=== PATIENT | female | born 1960 | race Caucasian/White ===

== ENCOUNTER 2017-08-12 09:13 | Emergency (ER) | payer MEDICAID ==
[~2017-08-12] VITALS: Ht 160 cm; Wt 63.6 kg
[~2017-08-12 09:13] MED LIST: LEVO150T8 PO
[2017-08-12 09:41] LABS: CLARITY,URINE CLEAR (Clear); COLOR,URINE YELLOW (Yellow); GLUCOSE, URINE NEGATIVE (Neg); KETONES,URINE NEGATIVE (Neg); LEUKOCYTE ESTERASE ,URINE NEGATIVE (Neg); NITRITES, URINE NEGATIVE (Neg); OCCULT BLOOD,URINE MODERATE (Neg); PROTEIN,URINE NEGATIVE (Neg); UROBILINOGEN,URINE 0.2 E.U/dL (0.2-1.0)
[2017-08-12 09:55] LABS: BASOPHILS # (AUTO) 0.1 X10'3 (0-0.2); BASOPHILS % (AUTO) 0.7 % (0-1); EOSINOPHILS # (AUTO) 0.2 X10'3 (0-0.9); EOSINOPHILS % (AUTO) 2.2 % (0-6); HEMATOCRIT 44.2 % (35.0-45.0); HEMOGLOBIN 15.2 g/dl (12.0-16.0); LYMPHOCYTES # (AUTO) 1.1 X10'3 (1.1-4.8); MEAN CORPUSCULAR HEMOGLOBIN 32.5 PG (27.0-31.0); MEAN CORPUSCULAR HGB CONC 34.4 % (33.0-36.5); MEAN CORPUSCULAR VOLUME 94.5 FL (78-98); MEAN PLATELET VOLUME 7.1 FL (7.4-10.4); MONOCYTES # (AUTO) 0.5 X10'3 (0-0.9); NEUTROPHILS # (AUTO) 5.8 X10'3 (1.8-7.7); NEUTROPHILS % (AUTO) 76.1 % (42-75); PLATELET COUNT 225 X10'3 (140-440); RED BLOOD COUNT 4.68 X10'6 (4.20-5.60); RED CELL DISTRIBUTION WIDTH 14.2 % (11.5-14.5); WHITE BLOOD COUNT 7.6 X10'3 (4.5-11.0)
[2017-08-12 09:57] LABS: UA COLLECTION TYPE CLN CATCH MIDSTREAM
[2017-08-12 09:58] LABS: BACTERIA,URINE NONE SEEN /HPF (Neg); MUCUS STRANDS NONE SEEN /LPF (Neg); SQUAMOUS EPITHELIAL CELL,UR NONE SEEN /LPF (FEW); WBC,URINE 0-4 /HPF (0-4)
[2017-08-12 10:16] LABS: ALANINE AMINOTRANSFERASE 20 U/L (12-78); ALBUMIN 3.6 G/DL (3.4-5.0); ALBUMIN/GLOBULIN RATIO 0.8 (1.1-1.5); ALKALINE PHOSPHATASE 118 IU/L (46-116); ANION GAP 8 (8-16); ASPARTATE AMINO TRANSFERASE 22 U/L (10-37); BILIRUBIN,TOTAL 0.4 MG/DL (0.1-1.0); BLOOD UREA NITROGEN 17 MG/DL (7-18); BUN/CREATININE RATIO 21.8 (6.6-38.0); CALCIUM 8.7 MG/DL (8.5-10.1); CHLORIDE 102 MMOL/L (99-107); CREATININE 0.78 MG/DL (0.40-0.90); GLUCOSE 93 MG/DL (70-104); POTASSIUM 3.9 MMOL/L (3.5-5.1); SODIUM 141 MMOL/L (135-145); TOTAL CARBON DIOXIDE 30.7 MMOL/L (24-32); TOTAL PROTEIN 8.4 G/DL (6.4-8.2); eGFR 76 ML/MIN
[2017-08-12 10:18] VITALS: BP 138/98
[2017-08-12 13:02] LABS: OCCULT BLOOD STOOL POSITIVE (Neg)
== END 2017-08-12 10:57 | disposition home or self-care (01) ==
LOC: ER 09:13
DX: K62.5 Hemorrhage of anus and rectum (principal); I25.2 Old myocardial infarction; F17.210 Nicotine dependence, cigarettes, uncomplicated; Z98.890 Other specified postprocedural states; Z88.0 Allergy status to penicillin; Z88.2 Allergy status to sulfonamides; Z79.899 Other long term (current) drug therapy
CPT/HCPCS: 36415; 74176; 80053; 81001; 82272; 85025; 99285

== ENCOUNTER 2018-08-22 16:01 | Emergency (ER) | payer MEDICARE, MEDICAID ==
[~2018-08-22] VITALS: Ht 160 cm; Wt 63.6 kg
[~2018-08-22 16:01] MED LIST changes: +METH57CR8 TOP
[2018-08-22 16:58] VITALS: BP 118/76
[2018-08-22] MEDS ORDERED: HYDR-4383 PO (17:53)
[2018-08-22] MEDS ORDERED: METH-360 PO (17:54)
[2018-08-22] MEDS ORDERED: ketorolac tromethamine 15mg/ml inj. IM ONE (17:55)
== END 2018-08-22 18:18 | disposition home or self-care (01) ==
LOC: ER 16:01
DX: M94.0 Chondrocostal junction syndrome [Tietze] (principal); I25.2 Old myocardial infarction; C50.919 Malignant neoplasm of unspecified site of unspecified female breast; Z88.0 Allergy status to penicillin; Z88.2 Allergy status to sulfonamides; Z79.899 Other long term (current) drug therapy; Z98.890 Other specified postprocedural states; W18.39XA Other fall on same level, initial encounter; Y93.89 Activity, other specified; Y92.89 Other specified places as the place of occurrence of the external cause; Y99.8 Other external cause status
CPT/HCPCS: 71046; 96372; 99284; J1885

== ENCOUNTER 2020-01-15 07:54 | Day surgery (SDC) | payer MEDICARE, MEDICAID ==
[~2020-01-15] VITALS: Ht 165.1 cm; Wt 62.6 kg
[~2020-01-15 07:54] MED LIST changes: +HYDR-4383 PO; +METH-360 PO
[2020-01-15] MEDS ORDERED: normal saline 1000ml 1,000 ML IV SCH (08:15)
[2020-01-15] MEDS ORDERED: KETO10DR3 EACHEYE (08:25)
[2020-01-15] MEDS ORDERED: DULO20CA18 PO (08:25)
[2020-01-15] MEDS ORDERED: ASCO250T68 (08:25)
[2020-01-15] MEDS ORDERED: LEVO112T5 PO (08:25)
[2020-01-15] MEDS ORDERED: GABA300T25 PO (08:25)
[2020-01-15] MEDS ORDERED: ERGO400C PO (08:25)
[2020-01-15 08:28] VITALS: BP 150/98
[2020-01-15 09:14] LABS: BASOPHILS % (AUTO) 0.7 % (0-1); EOSINOPHILS # (AUTO) 0.1 X10'3 (0-0.9); EOSINOPHILS % (AUTO) 1.4 % (0-6); HEMATOCRIT 44.6 % (35.0-45.0); LYMPHOCYTES % (AUTO) 14.7 % (21-51); MEAN CORPUSCULAR HEMOGLOBIN 32.3 PG (27.0-31.0); MEAN CORPUSCULAR HGB CONC 33.5 g/dL (33.0-36.5); MEAN CORPUSCULAR VOLUME 96.2 FL (78-98); MEAN PLATELET VOLUME 7.4 FL (7.4-10.4); MONOCYTES # (AUTO) 0.5 X10'3 (0-0.9); NEUTROPHILS # (AUTO) 5.2 X10'3 (1.8-7.7); NEUTROPHILS % (AUTO) 76.2 % (42-75); PLATELET COUNT 195 X10'3 (140-440); RED BLOOD COUNT 4.64 X10'6 (4.20-5.60); RED CELL DISTRIBUTION WIDTH 13.7 % (11.5-14.5); WHITE BLOOD COUNT 6.9 X10'3 (4.5-11.0)
[2020-01-15 09:21] LABS: ALBUMIN 3.4 G/DL (3.4-5.0); ANION GAP 9 (8-16); BLOOD UREA NITROGEN 18 MG/DL (7-18); CALCIUM 8.6 MG/DL (8.5-10.1); CHLORIDE 105 MMOL/L (99-107); CREATININE 0.82 MG/DL (0.40-0.90); GLUCOSE 95 MG/DL (70-104); POTASSIUM 3.6 MMOL/L (3.5-5.1); SODIUM 140 MMOL/L (135-145); TOTAL CARBON DIOXIDE 26.4 MMOL/L (24-32); eGFR 71 ML/MIN
--- NOTE | 2020-01-15 11:00 | NUR ---
Procedure cancelled per MD Aniket and patient agreed.
== END 2020-01-15 11:00 | disposition home or self-care (01) ==
LOC: SSTAY O 07:54
PROVIDERS: ATTEND Radiology Diagnostic Radiology
DX: R91.1 Solitary pulmonary nodule (principal); Z53.8 Procedure and treatment not carried out for other reasons; Z20.828 Contact with and (suspected) exposure to other viral communicable diseases; Z88.2 Allergy status to sulfonamides; Z88.0 Allergy status to penicillin
CPT/HCPCS: 36415; 80048; 85025; 87635

== ENCOUNTER 2020-05-18 11:21 | Day surgery (SDC) | payer MEDICARE, MEDICAID ==
[2020-05-15 14:00] LABS: PRE OP PROTIME 10.5 SECONDS (9.0-12.0)
[2020-05-15 14:01] LABS: ALBUMIN 3.5 G/DL (3.4-5.0); ALBUMIN/GLOBULIN RATIO 0.8 (1.1-1.5); ALKALINE PHOSPHATASE 100 IU/L (46-116); BLOOD UREA NITROGEN 17 MG/DL (7-18); BUN/CREATININE RATIO 18.5 (6.6-38.0); CALCIUM 9.5 MG/DL (8.5-10.1); CHLORIDE 106 MMOL/L (99-107); CREATININE 0.92 MG/DL (0.40-0.90); PRE OP ALT 19 U/L (30-65); PRE OP ANION GAP 6 (8-16); PRE OP AST 13 U/L (10-37); PRE OP BILIRUB, TOTAL 0.3 MG/DL (0.0-1.0); PRE OP GLUCOSE 79 MG/DL (70-104); PRE OP POTASSIUM 4.3 MMOL/L (3.4-5.1); PRE OP SODIUM 142 MMOL/L (135-145); TOTAL CARBON DIOXIDE 30.1 MMOL/L (24-32); TOTAL PROTEIN 8.1 G/DL (6.4-8.2); eGFR 62 ML/MIN
[2020-05-15 14:02] LABS: BASOPHILS % (AUTO) 0.6 % (0-1); EOSINOPHILS # (AUTO) 0.2 X10'3 (0-0.9); EOSINOPHILS % (AUTO) 1.9 % (0-6); LYMPHOCYTES # (AUTO) 1.1 X10'3 (1.1-4.8); LYMPHOCYTES % (AUTO) 14.5 % (21-51); MEAN CORPUSCULAR HEMOGLOBIN 32.8 PG (27.0-31.0); MEAN CORPUSCULAR HGB CONC 34.2 g/dL (33.0-36.5); MEAN CORPUSCULAR VOLUME 95.9 FL (78-98); MEAN PLATELET VOLUME 7.2 FL (7.4-10.4); MONOCYTES # (AUTO) 0.7 X10'3 (0-0.9); MONOCYTES % (AUTO) 8.6 % (2-12); NEUTROPHILS # (AUTO) 5.9 X10'3 (1.8-7.7); NEUTROPHILS % (AUTO) 74.4 % (42-75); PRE OP HEMATOCRIT 42.7 % (35.0-45.0); PRE OP HEMOGLOBIN 14.6 g/dL (12.0-16.0); PRE OP PLATELET COUNT 247 X10'3 (140-440); RED BLOOD COUNT 4.45 X10'6 (4.20-5.60); RED CELL DISTRIBUTION WIDTH 13.1 % (11.5-14.5)
[2020-05-18] VITALS (16 sets, daily range): BP systolic 132–189; BP diastolic 76–103
[~2020-05-18] VITALS: Ht 160 cm; Wt 63.8 kg
[~2020-05-18 11:21] MED LIST changes: +ASCO-134 PO; +CHOL10006 PO; +DULO20CA18 PO; +GABA300T25 PO; -HYDR-4383 PO; +KETO10DR3 EACHEYE; +LEVO112T5 PO; -LEVO150T8 PO; -METH-360 PO; -METH57CR8 TOP; +albuterol 2.5 MG/3 ML nebule NEB ONE; +famotidine 20mg tablet PO ONE; +ringers solution, lacted 1,000 ML IV SCH
[2020-05-18] MEDS ORDERED: clindamycin 600mg/D5W 50ml 50 ML IV ONE (11:30)
[2020-05-18] MEDS ORDERED: CLINDAMYCIN/D5W 900mg/50ml 50 ML IV ONE (11:35)
[2020-05-18] MEDS ORDERED: fentaNYL/PF 50MCG/1 ML 2ML syringe ONE ×2 (14:06→14:25)
[2020-05-18] MEDS ORDERED: midazolam 1 mg/ML 2ml injection ONE (14:06)
[2020-05-18] MEDS ORDERED: meperidine/PF 25mg/ml syringe ONE (15:12)
--- NOTE | 2020-05-18 15:14 | NUR ---
Received from OR via [facility], accompanied by Anesthesiologist DR DANGELO and report given by Anesthesiologist. PT DROWSY, NO S/S OF DISTRESS OR DISCOMFORT. PT W/SMALL INCISION W/STERI-STIP COVERING CDI ON STERNAL NOTCH. Addendum: 05/18/20 at 1602 by Jaida Gay RN Amended: Links added.
[2020-05-18] MEDS ORDERED: propofol inj 20 ML IV ONE (15:29)
[2020-05-18] MEDS ORDERED: metoprolol tartrate 1mg/ml inj IV ONE (15:29)
[2020-05-18] MEDS ORDERED: ondansetron/PF 4mg/2ml inj ONE (15:29)
[2020-05-18] MEDS ORDERED: rocuronium 10mg/ml inj IV ONE (15:29)
[2020-05-18] MEDS ORDERED: dexamethasone sod phosphate 4mg/ml inj. ONE (15:29)
[2020-05-18] MEDS ORDERED: LIDOcaine 2% (20mg/ml) 5ml vial ONE (15:29)
[2020-05-18] MEDS ORDERED: neostigmine methylsulfate 1 MG/ML 10ml vial ONE (15:29)
[2020-05-18] MEDS ORDERED: glycopyrrolate 0.2mg/ml inj ONE (15:29)
[2020-05-18] MEDS ORDERED: proCHLORperazine 10 MG/2 ml inj IV PRN (15:40)
[2020-05-18] MEDS ORDERED: meperidine/PF 25mg/ml syringe IV PRN ×3 (15:40)
[2020-05-18] MEDS ORDERED: morphine 4 MG/ML inj SYRINge IV PRN (15:40)
[2020-05-18] MEDS ORDERED: ondansetron/PF 4mg/2ml inj IV PRN (15:40)
[2020-05-18] MEDS ORDERED: ringers solution, lacted 1,000 ML IV SCH (15:40)
[2020-05-18] MEDS ORDERED: morphine 2 MG/ML inj. syringe IV PRN (15:40)
[2020-05-18] MEDS: labetalol 20mg/4ml (5mg/ml) syringe IV PRN ×2 (16:16→16:31)
--- NOTE | 2020-05-18 17:44 | NUR ---
PT UP AND ABLE TO AMBULATE SAFELY, NAUSEA RESOLVED, BP CONTROLLED. D/C INSTRUCTIONS GIVEN AND GONE OVER W/PT WHO VERBALIZED UNDERSTANDING. PT DC'D TO HOME VIA W/C TO PRIVATE VEHICLE W/O INCIDENT. Addendum: 05/18/20 at 1800 by Jaida Gay RN Amended: Links added.
[2020-05-26] MEDS ORDERED: VITAMIN E (10:34)
[2020-06-01] MEDS ORDERED: VITA200C22 PO (11:12)
[2020-06-01] MEDS ORDERED: GABA-530 PO (11:13)
== END 2020-05-18 17:44 | disposition home or self-care (01) ==
LOC: PAS 11:21
PROVIDERS: ATTEND Surgery
DX: R59.9 Enlarged lymph nodes, unspecified (principal); R91.8 Other nonspecific abnormal finding of lung field; Z20.822 Contact with and (suspected) exposure to COVID-19; J44.9 Chronic obstructive pulmonary disease, unspecified; F32.9 Major depressive disorder, single episode, unspecified; Z72.0 Tobacco use; Z85.3 Personal history of malignant neoplasm of breast
CPT/HCPCS: 36415; 39402; 71045; 80053; 82948; 85025; 85610; 85730; 87635; 94640; C9803; J1100; J2001; J2175; J2250; J2405; J2704; J2710; J3010; J7120; U0003; 88305; A4215; A4618; A6258; A7000; J3490